=== PATIENT | male | born 1935 | race Caucasian/White ===

== ENCOUNTER 2019-09-19 15:29 | Outpatient (RCR) | payer MEDICARE, SELFPAY | END 2019-11-14 13:51 | disposition home or self-care (01) | LOC: CHSSENLIFE 15:29 | PROVIDERS: PCP Family Medicine; Visit Provider Psychiatry & Neurology Psychiatry | DX: F33.1 Major depressive disorder, recurrent, moderate (principal); F41.9 Anxiety disorder, unspecified; F01.51 Vascular dementia, unspecified severity, with behavioral disturbance | CPT/HCPCS: 90792; 90853; 99213; 99214; G0463 ==